=== PATIENT | female | born 2000 | race Caucasian/White ===

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

== ENCOUNTER → 2021-01-04 | Outpatient (CLI) | payer MEDICAID ==
[2021-01-04 18:23] LABS: CLUE CELLS NOT OBSERVED (Not Observd)
== END ==
LOC: LAB 17:07
PROVIDERS: Nurse Practitioner
DX: N89.8 Other specified noninflammatory disorders of vagina (principal)
CPT/HCPCS: Q0111

== ENCOUNTER → 2022-01-25 | Outpatient (CLI) | payer MEDICAID, BC ==
[2022-01-25 13:51] LABS: HEMATOCRIT 39.9 % (35.0-45.0); HEMOGLOBIN 13.6 g/dL (12.0-15.0); MEAN PLATELET VOLUME 8.8 fl (7.4-10.4); RED BLOOD COUNT 4.49 M/mm3 (4.10-5.30); RED CELL DISTRIBUTION WIDTH 12.1 % (11.5-14.5); WHITE BLOOD COUNT 5.4 K/mm3 (4.8-10.8)
[2022-01-25 13:52] LABS: ALBUMIN 4.6 g/dL (3.5-5.0)
[2022-01-25 13:54] LABS: CALCIUM 9.3 mg/dL (8.3-10.5)
[2022-01-25 13:55] LABS: TOTAL PROTEIN 7.5 g/dL (6.4-8.3)
[2022-01-25 13:57] LABS: TOTAL BILIRUBIN 0.4 mg/dL (0.2-1.2)
[2022-01-25 22:42] LABS: COMPLEMENT-C4 20 mg/dL (15-57)
== END ==
LOC: LAB 13:24
PROVIDERS: Dermatology MOHS-Micrographic Surgery
DX: T78.3XXA Angioneurotic edema, initial encounter (principal)

== ENCOUNTER → 2023-09-11 | Outpatient (CLI) | payer BC | LOC: LAB 18:37 | DX: Z20.822 Contact with and (suspected) exposure to COVID-19 (principal) ==